=== PATIENT | male | born 1965 | race Caucasian/White ===

== ENCOUNTER 2016-11-03 20:20 | Emergency (ER) | payer SELFPAY ==
[2016-11-03] MEDS ORDERED: IBUPROFEN 800 MG TABLET PO ONE (20:37)
--- NOTE | 2016-11-03 20:40 | ER Document Report ---
ED Medical Screen (RME) - General Stated Complaint: ARM PAIN Notes: Patient complaint bilateral arm pain for the past 1 year. States he was seen approximately one year ago, given a shot of steroids and put on ibuprofen. 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 I have greeted and performed a rapid initial assessment of this patient. A comprehensive ED assessment and evaluation of the patient, analysis of test results and completion of the medical decision making process will be conducted by additional ED providers. TRAVEL OUTSIDE OF THE [place] IN LAST 30 DAYS: No - Related Data Allergies/Adverse Reactions: No Known Allergies Allergy (Verified 11/03/16 20:35) Past Medical History Renal/ Medical History: Reports: Hx Kidney Stones Past Surgical History: Reports: Hx Appendectomy - Immunizations Hx Diphtheria, Pertussis, Tetanus Vaccination: Yes Physical Exam - Vital signs Vitals: Temp Pulse Resp BP Pulse Ox 98.1 F 80 20 157/88 H 95 11/03/16 20:34 11/03/16 20:34 11/03/16 20:34 11/03/16 20:34 11/03/16 20:34 Course - Vital Signs Vital signs: Temp Pulse Resp BP Pulse Ox 98.1 F 80 20 157/88 H 95 11/03/16 20:34 11/03/16 20:34 11/03/16 20:34 11/03/16 20:34 11/03/16 20:34
[2016-11-03] MEDS ORDERED: PREDNISONE 20 MG TABLET PO ONE (22:23)
--- NOTE | 2016-11-03 22:33 | ER Document Report ---
ED General - General Chief Complaint: Arm Pain Stated Complaint: ARM PAIN Notes: Patient is 51-year-old male who presents for complaint of chronic recurring pain that goes from his elbows down into his forearms. 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 Recently he has been short staffed and have no do a lot of the work himself. The past whenever he has to do a lot of the work he starts getting these pains into his arms. In the past steroids and NSAIDs have helped. He's never seen a with peers but this. He says the pain originates from his lateral epicondyles if he pushes on his lateral epicondyles of his elbows it does reproduce his symptoms. TRAVEL OUTSIDE OF THE [place] IN LAST 30 DAYS: No - Related Data Allergies/Adverse Reactions: No Known Allergies Allergy (Verified 11/03/16 20:35) Past Medical History - Social History Smoking Status: Current Every Day Smoker Frequency of alcohol use: Occasional Drug Abuse: None Family History: Other - father with prostate cancer Renal/ Medical History: Reports: Hx Kidney Stones. Denies: Hx Peritoneal Dialysis Past Surgical History: Reports: Hx Appendectomy - Immunizations Hx Diphtheria, Pertussis, Tetanus Vaccination: Yes Review of Systems - Review of Systems Notes: My Normal Review Basic REVIEW OF SYSTEMS: CONSTITUTIONAL : Denies fever, chills, or sweats. Denies recent illness. MUSCULOSKELETAL: Pain in forearms and elbows. SKIN: Denies rash or skin lesions. HEMATOLOGIC : Denies easy bruising or bleeding. NEUROLOGICAL: Denies sensory or motor loss. ALL OTHER SYSTEMS REVIEWED AND NEGATIVE. Physical Exam - Vital signs Vitals: Temp Pulse Resp BP Pulse Ox 98.1 F 80 20 157/88 H 95 11/03/16 20:34 11/03/16 20:34 11/03/16 20:34 11/03/16 20:34 11/03/16 20:34 - Notes Notes: General Appearance: Well nourished, alert, cooperative, no acute distress, mild obvious discomfort. Vitals: reviewed, See vital signs table. Extremities: strength 5/5 in all extremities, good pulses in all extremities, pain to palpation over bilateral epicondyles., no edema. Skin: warm, dry, appropriate color, no rash Neuro: speech clear, oriented x 3, normal affect, responds appropriately to questions. Course - Vital Signs Vital signs: Temp Pulse Resp BP Pulse Ox 98.1 F 70 16 141/77 H 97 11/03/16 22:48 11/03/16 22:48 11/03/16 22:48 11/03/16 22:48 11/03/16 22:48 - Transfer of Care Notes: 11/04/16 06:57 Patient will be discharged home. I will place him on prednisone tapering dose. I encouraged him to take Naprosyn. I encourage him to rest and not use his arms for heavy lifting for at least several days. Encourage him to use ice packs to the lateral epicondyles. I encourage him to use compression sleeves over the area when he does have to work. I will give him referral to orthopedics. I encourage him to return to ER if has worsening pain or feels unwell. Symptoms seem very consistent with lateral epicondylitis. Dictation of this chart was performed using voice recognition software; therefore, there may be some unintended grammatical errors. Discharge - Discharge Clinical Impression: Lateral epicondylitis Qualifiers: Laterality: bilateral Qualified Code(s): M77.11 - Lateral epicondylitis, right elbow Arm pain Qualifiers: Laterality: bilateral Qualified Code(s): M79.601 - Pain in right arm Condition: Good Disposition: HOME, SELF-CARE Additional Instructions: Please rest your arms for 1 week if possible. please apply ice packs to your elbows for no longer than 30 minutes at a time. please follow up with the orthopedic clinic (Dr. Morris) for further treatment options. Prescriptions: Naproxen [Naprosyn 250 mg Tablet] 250 mg PO BID #20 tablet Prednisone 10 mg PO ASDIR #42 tablet Referrals: BUCK MORRIS DO [ACTIVE STAFF] - Follow up in 3-5 days
[2016-11-03 22:49] VITALS: BP 141/77
== END 2016-11-03 22:49 | disposition home or self-care (01) ==
LOC: ER 20:20
DX: M77.11 Lateral epicondylitis, right elbow (principal); F17.200 Nicotine dependence, unspecified, uncomplicated
CPT/HCPCS: 99283; J7512

== ENCOUNTER 2017-08-28 19:12 | Emergency (ER) | payer OTHER ==
[2017-08-28] MEDS ORDERED: CEPHALEXIN 500 MG CAPSULE PO ONE (19:28)
[2017-08-28] MEDS ORDERED: DIPH/PERTUSS(ACELL)/TETANUS VAC/PF 0.5 ML SYR (>=10YO) IM ONE (19:28)
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
[2017-08-28] MEDS ORDERED: LIDOCAINE 1%/EPINEPHRINE INJ 20 ML VIAL INJ ONE (19:50)
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
[2017-08-28] MEDS ORDERED: ACETAMINOPHEN 325 MG TABLET PO ONE (21:32)
[2017-08-28] MEDS ORDERED: IBUPROFEN 600 MG TABLET PO ONE (21:33)
== END 2017-08-28 22:10 | disposition home or self-care (01) ==
LOC: ER 19:12
PROC: 0HQMXZZ Repair Right Foot Skin, External Approach (ICD-10-PCS; principal; 2017-08-28)
DX: S91.311A Laceration without foreign body, right foot, initial encounter (principal); S92.421A Displaced fracture of distal phalanx of right great toe, initial encounter for closed fracture; Y03.0XXA Assault by being hit or run over by motor vehicle, initial encounter; F17.200 Nicotine dependence, unspecified, uncomplicated; Z23 Encounter for immunization
CPT/HCPCS: 99283; 73630; 90715; 12004; J3490

== ENCOUNTER 2017-09-06 13:22 | Inpatient (IN) | payer OTHER ==
[2017-09-06] MEDS ORDERED: OXYCODONE-ACETAMINOPHEN 5-325 MG TABLET PO ONE (14:29)
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
--- NOTE | 2017-09-06 15:00 | RADIOLOGY REPORT (SQ) ---
EXAM DESCRIPTION: FOOT RIGHT COMPLETE COMPLETED DATE/TIME: 09/06/2017 2:47 pm REASON FOR STUDY: foot infection COMPARISON: None. NUMBER OF VIEWS: Three views. TECHNIQUE: AP, lateral and oblique radiographic images acquired of the right foot. LIMITATIONS: None. FINDINGS: MINERALIZATION: Normal. BONES: There is a minor fracture of the terminal tuft of the 1st digit. There is no evidence of oste omyelitis. JOINTS: No effusions. SOFT TISSUES: There is irregular soft tissue swelling of the great toe. OTHER: No other significant finding. IMPRESSION: Fracture of the terminal tuft the 1st distal phalanx. Soft tissue swelling. No osteomy elitis. TECHNICAL DOCUMENTATION: JOB ID: [id number] [employer]- All Rights Reserved
[2017-09-06] MEDS ORDERED: NORMAL SALINE 1000 ML 1,000 ML IV ONE (15:39)
[2017-09-06] MEDS ORDERED: PIPERACILLIN/TAZOBACTAM 3.375 GM VIAL IV ONE ×3 (15:39→23:54)
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
[2017-09-06 15:48] LABS: ABSOLUTE BASOPHILS # (AUTO) 0.1 10^3/uL (0.0-0.2); ABSOLUTE EOSINOPHILS # (AUTO) 0.2 10^3/uL (0.0-0.6); ABSOLUTE LYMPHOCYTES (AUTO) 2.4 10^3/uL (0.5-4.7); ABSOLUTE NEUT (AUTO) 12.9 10^3/uL (1.7-8.2); BASOPHILS % (AUTO) 0.7 % (0-2); EOSINOPHILS % (AUTO) 1.2 % (0-6); HEMATOCRIT 44.4 % (37.9-51.0); HEMOGLOBIN 15.6 g/dL (13.5-17.0); HGB HCT DIFFERENCE 2.4; LYMPHOCYTES % (AUTO) 14.5 % (13-45); MEAN CORPUSCULAR HGB CONC 35.1 g/dL (32.0-36.0); MEAN CORPUSCULAR VOLUME 94 fl (80-97); RED BLOOD COUNT 4.73 10^6/uL (4.35-5.55); RED CELL DISTRIBUTION WIDTH 13.1 % (11.5-14.0); SEGMENTED NEUTROPHILS % (AUTO) 77.6 % (42-78); WHITE BLOOD COUNT 16.7 10^3/uL (4.0-10.5)
[2017-09-06 15:49] LABS: ALANINE AMINOTRANSFERASE 28 U/L (21-72); ALBUMIN 4.5 g/dL (3.5-5.0); ALKALINE PHOSPHATASE 100 U/L (38-126); ANION GAP 16 (5-19); ASPARTATE AMINO TRANSFERASE 23 U/L (17-59); BILIRUBIN,DIRECT 0.4 mg/dL (0.0-0.4); BILIRUBIN,TOTAL 0.5 mg/dL (0.2-1.3); BLOOD UREA NITROGEN 16 mg/dL (7-20); CALCIUM 10.3 mg/dL (8.4-10.2); CARBON DIOXIDE 23 mmol/L (22-30); CHLORIDE 105 mmol/L (98-107); CREATININE RESULT 0.92 mg/dL (0.52-1.25); GLUCOSE 93 mg/dL (75-110); POTASSIUM 4.8 mmol/L (3.6-5.0); SODIUM 144.3 mmol/L (137-145); TOTAL PROTEIN 7.9 g/dL (6.3-8.2)
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
[2017-09-06] MEDS ORDERED: DEXTROSE 40% GEL 15 GM TUBE PO PRN (17:26)
[2017-09-06] MEDS ORDERED: DEXTROSE 50%-WATER 25 GM/50 ML DISP.SYRIN IV PRN (17:26)
[2017-09-06] MEDS: HYDROMORPHONE HCL INJ/PF 2 MG/ML AMPULE IV PRN (22:13)
[2017-09-07] MEDS: PIPERACILLIN/TAZOBACTAM 3.375 GM VIAL IV SCH ×2 (00:05→06:38)
[2017-09-07] MEDS: NORMAL SALINE 1000 ML 1,000 ML IV PRN (00:05)
[2017-09-07] MEDS: HYDROMORPHONE HCL INJ/PF 2 MG/ML AMPULE IV PRN (02:11)
[2017-09-07] MEDS ORDERED: INFLUENZA ADLT QUAD (36MOS+) 2017-18 VAC 0.5 ML SYR IM PRN (04:56)
[2017-09-07 05:50] LABS: ABSOLUTE BASOPHILS # (AUTO) 0.1 10^3/uL (0.0-0.2); ABSOLUTE EOSINOPHILS # (AUTO) 0.4 10^3/uL (0.0-0.6); ABSOLUTE LYMPHOCYTES (AUTO) 3.3 10^3/uL (0.5-4.7); ABSOLUTE MONOCYTES (AUTO) 1.3 10^3/uL (0.1-1.4); ABSOLUTE NEUT (AUTO) 7.5 10^3/uL (1.7-8.2); EOSINOPHILS % (AUTO) 3.1 % (0-6); HEMATOCRIT 38.2 % (37.9-51.0); HGB HCT DIFFERENCE 1.7; LYMPHOCYTES % (AUTO) 26.3 % (13-45); MEAN CORPUSCULAR HEMOGLOBIN 32.3 pg (27.0-33.4); MEAN CORPUSCULAR HGB CONC 34.7 g/dL (32.0-36.0); MEAN CORPUSCULAR VOLUME 93 fl (80-97); MONOCYTES % (AUTO) 10.2 % (3-13); RED BLOOD COUNT 4.11 10^6/uL (4.35-5.55); SEGMENTED NEUTROPHILS % (AUTO) 59.4 % (42-78); WHITE BLOOD COUNT 12.7 10^3/uL (4.0-10.5)
[2017-09-07 06:07] LABS: HEMOGLOBIN 13.3 g/dL (13.5-17.0)
[2017-09-07] MEDS ORDERED: SUCCINYLCHOLINE CHLORIDE INJ 200 MG/10 ML VIAL ONE (07:54)
[2017-09-07] MEDS ORDERED: ONDANSETRON HCL INJ/PF 4 MG/2 ML SDV ONE (07:54)
[2017-09-07] MEDS ORDERED: DEXAMETHASONE SOD PHOSPHATE INJ 4 MG/1 ML VIAL ONE (07:54)
[2017-09-07] MEDS ORDERED: FENTANYL CITRATE INJ/PF 100 MCG/2 ML AMPUL ONE ×2 (08:34)
[2017-09-07] MEDS ORDERED: MIDAZOLAM 2 MG/2 ML INJ ONE (08:34)
[2017-09-07] MEDS ORDERED: KETAMINE HCL INJ 500 MG/10 ML VIAL ONE (08:34)
[2017-09-07] MEDS ORDERED: PROPOFOL INJ 200 MG/20 ML VIAL IV ONE (08:35)
[2017-09-07] MEDS ORDERED: DIPHENHYDRAMINE HCL 50 MG/ML VIAL IV PRN (09:31)
[2017-09-07] MEDS ORDERED: FENTANYL CITRATE INJ/PF 100 MCG/2 ML AMPUL IV PRN ×3 (09:31)
[2017-09-07] MEDS ORDERED: MORPHINE SULFATE 10 MG/ML INJ IV PRN (09:31)
[2017-09-07] MEDS ORDERED: PROMETHAZINE HCL INJ 25 MG/1 ML VIAL IV PRN (09:31)
[2017-09-07] MEDS ORDERED: MORPHINE SULFATE 10 MG/ML INJ INJ ONE (10:00)
[2017-09-07] MEDS ORDERED: MORPHINE SULFATE 10 MG/ML INJ ONE (10:02)
[2017-09-07] MEDS ORDERED: PROMETHAZINE HCL INJ 25 MG/1 ML VIAL ONE (10:05)
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
[2017-09-07] MEDS ORDERED: PIPERACILLIN SODIUM/TAZOBACTAM 3.375 GM in NORMAL SALINE 100 ML IV ONE (13:00)
[2017-09-07] MEDS: OXYCODONE-ACETAMINOPHEN 5-325 MG TABLET PO PRN ×3 (15:05→23:09)
[2017-09-07] MEDS: PIPERACILLIN SODIUM/TAZOBACTAM 3.375 GM in NORMAL SALINE 100 ML IV SCH ×2 (17:26→23:09)
--- NOTE | 2017-09-07 23:01 | EKG REPORT ---
SEVERITY:- NORMAL ECG - SINUS RHYTHM : Confirmed by: Loly Carpenter 07-Sep-2017 23:00:15
[2017-09-08] MEDS: NORMAL SALINE 1000 ML 1,000 ML IV PRN (05:13)
[2017-09-08] MEDS: PIPERACILLIN SODIUM/TAZOBACTAM 3.375 GM in NORMAL SALINE 100 ML IV SCH ×3 (05:19→17:49)
[2017-09-08] MEDS: HYDROMORPHONE HCL INJ/PF 2 MG/ML AMPULE IV PRN (05:20)
[2017-09-08] MEDS ORDERED: ONDANSETRON HCL INJ/PF 4 MG/2 ML SDV ONE (09:14)
[2017-09-08] MEDS ORDERED: EPHEDRINE SULFATE INJ 50 MG/1 ML AMPULE ONE (09:14)
[2017-09-08] MEDS ORDERED: FENTANYL CITRATE INJ/PF 100 MCG/2 ML AMPUL ONE (09:14)
[2017-09-08] MEDS ORDERED: MIDAZOLAM 2 MG/2 ML INJ ONE (09:14)
[2017-09-08] MEDS ORDERED: HYDROMORPHONE HCL INJ/PF 2 MG/ML AMPULE ONE (09:14)
[2017-09-08] MEDS ORDERED: PROPOFOL INJ 200 MG/20 ML VIAL IV ONE (09:15)
[2017-09-08] MEDS ORDERED: LIDOCAINE 1% INJ-PF (10 MG/ML) 30 ML SDV ONE (09:30)
[2017-09-08] MEDS ORDERED: DIPHENHYDRAMINE HCL 50 MG/ML VIAL IV PRN (09:55)
[2017-09-08] MEDS ORDERED: MEPERIDINE HCL/PF INJ 25 MG/1 ML DISP.SYRIN IV PRN (09:55)
[2017-09-08] MEDS ORDERED: PROMETHAZINE HCL INJ 25 MG/1 ML VIAL IV PRN (09:55)
[2017-09-08] MEDS ORDERED: FENTANYL CITRATE INJ/PF 100 MCG/2 ML AMPUL IV PRN ×3 (09:55)
[2017-09-08] MEDS: OXYCODONE-ACETAMINOPHEN 5-325 MG TABLET PO PRN ×2 (13:22→17:38)
[2017-09-08 18:20] VITALS: BP 175/99
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
== END 2017-09-08 18:20 | disposition home or self-care (01) | DRG 914 ==
LOC: ER 13:22 → EH 17:06 → 5 22:38
PROVIDERS: ATTEND Surgery
PROC: 0JCQ3ZZ Extirpation of Matter from Right Foot Subcutaneous Tissue and Fascia, Percutaneous Approach (ICD-10-PCS; 2017-09-07)
PROC: 0JDQ3ZZ Extraction of Right Foot Subcutaneous Tissue and Fascia, Percutaneous Approach (ICD-10-PCS; principal; 2017-09-07 09:00)
PROC: 0JDQ3ZZ Extraction of Right Foot Subcutaneous Tissue and Fascia, Percutaneous Approach (ICD-10-PCS; 2017-09-08)
PROC: 0JQQ3ZZ Repair Right Foot Subcutaneous Tissue and Fascia, Percutaneous Approach (ICD-10-PCS; 2017-09-08)
DX: S91.121A Laceration with foreign body of right great toe without damage to nail, initial encounter (principal); L08.9 Local infection of the skin and subcutaneous tissue, unspecified; I10 Essential (primary) hypertension; Z79.899 Other long term (current) drug therapy
CPT/HCPCS: 00400; 36415; 80053; 85025; 87070; 87205; 88300; 93005; 93010; 96365; 99284; J0330; J1100; J1170; J2250; J2270; J2405; J2543; J2550; J2704; J3010; J3490; J7030

== ENCOUNTER 2017-09-15 11:32 | Emergency (ER) | payer OTHER ==
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
--- NOTE | 2017-09-15 14:09 | ER Document Report ---
ED General - General Chief Complaint: Wound Infection Stated Complaint: FOOT PAIN Time Seen by Provider: 09/15/17 12:00 TRAVEL OUTSIDE OF THE [place] IN LAST 30 DAYS: No - HPI Patient complains to provider of: Right foot infection Notes: Patient coming in for wound evaluation. Patient was recently operated on by local surgeons due to a crush injury that was sewed up with a foreign body thinning of getting infected. Patient is concerned about infection today denies any changes to the wound other than possibility of some slight drainage that was seen by his . Patient denies any increased pain states that his foot has feeling better since last time he was seen by a surgeon which was approximately on . Denies fevers chills nausea vomiting diarrhea. - Related Data Allergies/Adverse Reactions: No Known Allergies Allergy (Verified 09/15/17 11:32) Past Medical History - Social History Smoking Status: Current Every Day Smoker Frequency of alcohol use: Occasional Drug Abuse: Marijuana Family History: Reviewed & Not Pertinent, Other - father with prostate cancer Patient has suicidal ideation: No Patient has homicidal ideation: No - Past Medical History Cardiac Medical History: Reports: Hx Hypertension Denies: Hx Hypercholesterolemia Renal/ Medical History: Reports: Hx Kidney Stones. Denies: Hx Peritoneal Dialysis Past Surgical History: Reports: Hx Appendectomy, Hx Orthopedic Surgery - Right toe/foot - Immunizations Hx Diphtheria, Pertussis, Tetanus Vaccination: Yes Review of Systems - Review of Systems Constitutional: No symptoms reported EENT: No symptoms reported Cardiovascular: No symptoms reported Respiratory: No symptoms reported Gastrointestinal: No symptoms reported Genitourinary: No symptoms reported Male Genitourinary: No symptoms reported Musculoskeletal: Other - Wound infection Skin: No symptoms reported Hematologic/Lymphatic: No symptoms reported Neurological/Psychological: No symptoms reported Physical Exam - Vital signs Vitals: Temp Pulse Resp BP Pulse Ox 98.7 F 87 18 141/90 H 100 09/15/17 11:38 09/15/17 11:38 09/15/17 11:38 09/15/17 11:38 09/15/17 11:38 Interpretation: Normal - General General appearance: Appears well, Alert - HEENT Head: Normocephalic, Atraumatic Eyes: Normal Pupils: PERRL - Respiratory Respiratory status: No respiratory distress Chest status: Nontender Breath sounds: Normal Chest palpation: Normal - Cardiovascular Rhythm: Regular Heart sounds: Normal auscultation Murmur: No - Abdominal Inspection: Normal Distension: No distension Bowel sounds: Normal Tenderness: Nontender Organomegaly: No organomegaly - Back Back: Normal, Nontender - Extremities General upper extremity: Normal inspection, Nontender, Normal color, Normal ROM , Normal temperature General lower extremity: Other - Tenderness to palpation of the greater toe hallux region however there is no apparent tenderness to palpation of the foot.. No: Normal inspection - Patient with surgical wound mostly to the right greater toe with some necrotic tissue necrotic skin flap. Sutures are in place and looks to be good granulation tissue no overt infection noted erythema of the dorsum of the foot. - Neurological Neuro grossly intact: Yes Cognition: Normal Orientation: AAOx4 Kathy Coma Scale Eye Opening: Spontaneous Kathy Coma Scale Verbal: Oriented Kathy Coma Scale Motor: Obeys Commands [place] Coma Scale Total: 15 Speech: Normal Motor strength normal: LUE, RUE, LLE, RLE Sensory: Normal - Psychological Associated symptoms: Normal affect, Normal mood - Skin Skin Temperature: Warm Skin Moisture: Dry Skin Color: Normal Course - Re-evaluation Re-evalutation: 09/15/17 15:55 Patient was evaluated by Dr. Ca surgeon front elevator operator who saw the patient on states there is no changes to the wound no need to change antibiotic course or wound therapy at this time. Patient is to follow-up on Saturday. Patient agrees with plan. - Vital Signs Vital signs: Temp Pulse Resp BP Pulse Ox 99.0 F 68 18 145/82 H 98 09/15/17 14:19 09/15/17 14:19 09/15/17 14:19 09/15/17 14:19 09/15/17 14:19 Discharge - Discharge Clinical Impression: foot wound Condition: Good Disposition: HOME, SELF-CARE Additional Instructions: Continue your wound care at home. Please follow-up with the surgical clinic on Saturday. Per surgeon's instructions at bedside at Dr. Ca continue your antibiotics as well elevate your foot move the foot as much as he can. Return to the ER for any concerns.
[2017-09-15 14:36] VITALS: BP 145/82
--- NOTE | 2017-09-15 21:53 | CONSULTATION REPORT E ---
Consultation Report NAME: ANDRE LIRIANO : 1965 AGE: 51Y DATE: 09/15/2017 TO: BILL KERN M.D. FROM: MARILEE FRAUSTO M.D. Requesting Physician REFERRING PHYSICIAN: The patient seen at the request of Dr. Avila. CHIEF COMPLAINT: Right foot wound. REPORT OF CONSULTATION: The patient is a 51-year-old white male, well-known to [facility], 3+ week status post crush injury right foot, specifically right great toe and forefoot. The patient initially underwent irrigation, debridement, and closure of the foot wound by the emergency department immediately after injury. Seven days later the foot pussed up and then the patient was taken back to the operating room by Dr. Edu Gonzalez where he underwent debridement, removal of vegetable matter, closure of wound loosely. The patient was seen in [facility] last week and found to have satisfactory progression of wound healing, but not complete stability. There were areas of epidermolysis around the plantar surface of the great toe. Stitches were left in. The patient now comes back to the emergency department because the patient's was concerned the foot may be infected. He denies fever, chills, or temperature elevation. Past medical and surgical history can be found in the history and physical document. PHYSICAL EXAMINATION: The patient is seen in the Emergency Department at [facility] with Dr. Avila. He is in no acute distress. Exam focused on the right foot. The foot is warm. There is no evidence of edema or streaking. There are palpable dorsalis pedis, posterior tibial pulses. The right great toe and metatarsal area with approximately 8 Ethilon stitches. These remain intact. There are areas of desquamation and epidermolysis on the plantar surface of the great toe. There is no foul smell, pus, or anything expressed with gentle pressure. IMPRESSION: Traumatic injury right great toe and forefoot status post washout closure with acceptable postoperative condition of the wound. RECOMMENDATIONS: 1. No indication for further intervention. 2. The patient to continue pressure offloading while walking using crutches and elevation while at bedrest. 3. The patient is to return to [facility] as previously scheduled for wound check in approximately 48-72 hours. Debridement may commence at that time on the necrotic skin. This was explained to the patient. He expresses his understanding and agrees to proceed. DICTATING PHYSICIAN: BILL KERN M.D. [id number] PHY#: [id number] ID: [id number] JOB#: [id number] ACCT: [id number] cc:BILL KERN M.D. >
== END 2017-09-15 14:15 | disposition home or self-care (01) ==
LOC: ER 11:32
DX: T81.4XXA Infection following a procedure, initial encounter (principal); M79.671 Pain in right foot; Y83.9 Surgical procedure, unspecified as the cause of abnormal reaction of the patient, or of later complication, without mention of misadventure at the time of the procedure; F17.200 Nicotine dependence, unspecified, uncomplicated
CPT/HCPCS: 99283

== ENCOUNTER 2017-11-03 15:41 | Emergency (ER) | payer OTHER ==
[2017-11-03] MEDS ORDERED: DEXAMETHASONE SOD PHOS INJ 10 MG/1 ML VIAL IM ONE (16:40)
[2017-11-03] MEDS ORDERED: MELOXICAM 15 MG TABLET PO ONE (16:40)
--- NOTE | 2017-11-03 16:40 | ER Document Report ---
ED Extremity Problem, Upper - General Chief Complaint: Arm Pain Stated Complaint: PAIN IN BOTH ARMS Time Seen by Provider: 11/03/17 16:32 Mode of Arrival: Ambulatory Information source: Patient Notes: Patient is a 52-year-old male who presents to the ER today for bilateral arm pain that is chronic but worse over the past 3 days. Patient states that he does [employer] for a living and lifts heavy things over and over. He thinks that he "overuses" his arms. Patient denies any injury. He denies any numbness or tingling. He states that the pain is worse around the elbows but does shoot to the wrists. TRAVEL OUTSIDE OF THE [place] IN LAST 30 DAYS: No - Related Data Allergies/Adverse Reactions: No Known Allergies Allergy (Verified 09/15/17 11:32) Past Medical History - General Information source: Patient - Social History Smoking Status: Unknown if Ever Smoked Family History: Reviewed & Not Pertinent, Other - father with prostate cancer - Past Medical History Cardiac Medical History: Reports: Hx Hypertension Denies: Hx Hypercholesterolemia Renal/ Medical History: Reports: Hx Kidney Stones. Denies: Hx Peritoneal Dialysis Past Surgical History: Reports: Hx Appendectomy, Hx Orthopedic Surgery - Right toe/foot - Immunizations Hx Diphtheria, Pertussis, Tetanus Vaccination: Yes Review of Systems - Review of Systems Constitutional: No symptoms reported EENT: No symptoms reported Cardiovascular: No symptoms reported Respiratory: No symptoms reported Gastrointestinal: No symptoms reported Genitourinary: No symptoms reported Male Genitourinary: No symptoms reported Musculoskeletal: See HPI Skin: No symptoms reported Hematologic/Lymphatic: No symptoms reported Neurological/Psychological: No symptoms reported Physical Exam - Vital signs Vitals: Temp Pulse Resp BP Pulse Ox 98.2 F 93 16 165/87 H 98 11/03/17 15:48 11/03/17 15:48 11/03/17 15:48 11/03/17 15:48 11/03/17 15:48 - Notes Notes: PHYSICAL EXAMINATION: GENERAL: Well-appearing and in no acute distress. HEAD: Atraumatic, normocephalic. EYES: Pupils equal round and reactive to light, extraocular movements intact, sclera anicteric, conjunctiva are normal. NECK: Normal range of motion, supple without lymphadenopathy LUNGS: CTAB and equal. No wheezes rales or rhonchi. HEART: Regular rate and rhythm without murmurs ABDOMEN: Soft, no tenderness. No guarding, no rebound BACK: no vertebral tenderness, normal ROM GI/: no CVA tenderness EXTREMITIES: Normal range of motion but with pain on flexion and extension to the lateral elbows bilaterally, tender to lateral proximal forearms at base of elbow, no pitting edema. No cyanosis. NEUROLOGICAL: Cranial nerves grossly intact. Normal sensory/motor exams. PSYCH: Normal mood, normal affect. SKIN: Warm, Dry, normal turgor, no rashes or lesions noted Course - Re-evaluation Re-evalutation: 11/03/17 18:01 X-rays negative for any acute pathology. Trigger point injections to bilateral lateral epicondylitis was successful. - Vital Signs Vital signs: Temp Pulse Resp BP Pulse Ox 98.2 F 93 16 165/87 H 98 11/03/17 15:48 11/03/17 15:48 11/03/17 15:48 11/03/17 15:48 11/03/17 15:48 Procedures - Additional Procedures trigger point injection Time performed: 17:45 Additional Procedures: Other - lateral epicondylitis trigger point injection bilaterally used 30mg kenalog 2cc combined with 1/2 cc sensorcaine 0.75% injected successfully without any complicatioins, pt tolerated well no blood loss pt had almost immediate pain relief indicating proper placement neurovascularly intact Discharge - Discharge Clinical Impression: Epicondylitis, lateral (tennis elbow) Qualifiers: Laterality: bilateral Qualified Code(s): M77.11 - Lateral epicondylitis, right elbow; M77.12 - Lateral epicondylitis, left elbow; M77.12 - Lateral epicondylitis, left elbow Condition: Stable Disposition: HOME, SELF-CARE Additional Instructions: Return immediately for any new or worsening symptoms. Follow up with primary care provider, call tomorrow to make followup appointment. Prescriptions: Prednisone [Deltasone 20 mg Tablet] 2 tab PO DAILY 5 Days #10 tablet Forms: Return to Work
[2017-11-03] MEDS ORDERED: TRIAMCINOLONE ACETONIDE INJ 40 MG/1 ML VIAL INJ ONE ×2 (16:43→16:44)
[2017-11-03] MEDS ORDERED: BUPIVACAINE HCL 0.75% INJ/PF (7.5 MG/1 ML) 10 ML SDV INJ ONE (16:43)
[2017-11-03] MEDS ORDERED: TRIAMCINOLONE ACETONIDE INJ 10 MG/1 ML 5 ML VIAL ONE (17:03)
[2017-11-03] MEDS ORDERED: TRIAMCINOLONE ACETONIDE INJ 40 MG/1 ML VIAL ONE (17:03)
[2017-11-03] MEDS ORDERED: MELOXICAM 15 MG TABLET ONE (17:21)
--- NOTE | 2017-11-03 17:34 | RADIOLOGY REPORT (SQ) ---
EXAM DESCRIPTION: ELBOW BILATERAL 2 VIEWS MIN COMPLETED DATE/TIME: 11/03/2017 5:19 pm REASON FOR STUDY: elbow pain bilaterally COMPARISON: None. NUMBER OF VIEWS: Four views. TECHNIQUE: AP, lateral, and both oblique radiographic images acquired of the right and left elbow. LIMITATIONS: None. FINDINGS: MINERALIZATION: Normal. BONES: No acute fracture or dislocation. No worrisome bone lesions. No significant osteophytes. JOINT: No effusions. SOFT TISSUES: No soft tissue swelling. No foreign body. OTHER: No other significant finding. IMPRESSION: NEGATIVE STUDY OF THE RIGHT AND LEFT ELBOWS. NO EXPLANATION FOR PAIN. TECHNICAL DOCUMENTATION: JOB ID: [id number] [employer]- All Rights Reserved
[2017-11-03 18:30] VITALS: BP 154/82
== END 2017-11-03 18:30 | disposition home or self-care (01) ==
LOC: ER 15:41
PROC: 3E0233Z Introduction of Anti-inflammatory into Muscle, Percutaneous Approach (ICD-10-PCS; principal; 2017-11-03)
PROC: 3E023BZ Introduction of Anesthetic Agent into Muscle, Percutaneous Approach (ICD-10-PCS; 2017-11-03)
DX: M77.11 Lateral epicondylitis, right elbow (principal); M77.12 Lateral epicondylitis, left elbow; M79.601 Pain in right arm; M79.602 Pain in left arm
CPT/HCPCS: 82962; 99283

== ENCOUNTER 2019-02-26 08:38 | Emergency (ER) | payer SELFPAY ==
[2019-02-26] MEDS ORDERED: ONDANSETRON HCL INJ/PF 4 MG/2 ML SDV IV ONE (09:26)
--- NOTE | 2019-02-26 09:28 | ER Document Report ---
ED Medical Screen (RME) - General Chief Complaint: Arm Pain Stated Complaint: DIZZINESS Time Seen by Provider: 02/26/19 09:26 TRAVEL OUTSIDE OF THE [place] 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 Patient works as a metal roofer. Patient states that he has been trying to drink water, but is not urinating as much as he normally would be. Denies RODRIGUEZ, fever, neck pain, URI, CP, SOB, Abd pain, or rash. I have treated and performed a rapid initial assessment of this patient. A comprehensive ED assessment and evaluation of the patient, analysis of test results and completion of medical decision making process will be conducted by additional ED providers. PHYSICAL EXAMINATION: GENERAL: Well-appearing, well-nourished and in no acute distress. A&Ox4. Answers questions appropriately. LUNGS: Breath sounds clear to auscultation bilaterally and equal. No wheezes rales or rhonchi. HEART: Regular rate and rhythm without murmurs, rubs, gallops. Extremities: No cyanosis, clubbing, or edema b/l. NEUROLOGICAL: Normal speech, normal gait. Cranial nerves grossly intact. PSYCH: Normal mood, normal affect. - Related Data Allergies/Adverse Reactions: No Known Allergies Allergy (Verified 02/26/19 08:43) Past Medical History - Past Medical History Cardiac Medical History: Reports: Hx Hypertension Denies: Hx Hypercholesterolemia Renal/ Medical History: Reports: Hx Kidney Stones. Denies: Hx Peritoneal Dialysis Past Surgical History: Reports: Hx Appendectomy, Hx Orthopedic Surgery - Right toe/foot - Immunizations Hx Diphtheria, Pertussis, Tetanus Vaccination: Yes History of Influenza Vaccine for 06/2017 - 11/2017 Season: No Physical Exam - Vital signs Vitals: Temp Pulse Resp BP Pulse Ox 97.9 F 93 18 184/99 H 100 02/26/19 08:47 02/26/19 08:47 02/26/19 08:47 02/26/19 08:47 02/26/19 08:47 Course - Vital Signs Vital signs: Temp Pulse Resp BP Pulse Ox 97.9 F 93 18 184/99 H 100 02/26/19 08:47 02/26/19 08:47 02/26/19 08:47 02/26/19 08:47 02/26/19 08:47
[2019-02-26] MEDS: NORMAL SALINE 1000 ML 1,000 ML IV PRN ×2 (09:39→11:23)
[2019-02-26 09:57] LABS: ABSOLUTE BASOPHILS # (AUTO) 0.1 10^3/uL (0.0-0.2); ABSOLUTE EOSINOPHILS # (AUTO) 0.1 10^3/uL (0.0-0.6); ABSOLUTE LYMPHOCYTES (AUTO) 3.2 10^3/uL (0.5-4.7); ABSOLUTE MONOCYTES (AUTO) 1.6 10^3/uL (0.1-1.4); ABSOLUTE NEUT (AUTO) 10.4 10^3/uL (1.7-8.2); BASOPHILS % (AUTO) 0.5 % (0-2); EOSINOPHILS % (AUTO) 0.5 % (0-6); HEMATOCRIT 46.8 % (37.9-51.0); LYMPHOCYTES % (AUTO) 20.7 % (13-45); MEAN CORPUSCULAR HEMOGLOBIN 31.7 pg (27.0-33.4); MEAN CORPUSCULAR HGB CONC 34.1 g/dL (32.0-36.0); MEAN CORPUSCULAR VOLUME 93 fl (80-97); MONOCYTES % (AUTO) 10.3 % (3-13); PLATELET COUNT 386 10^3/uL (150-450); RED BLOOD COUNT 5.03 10^6/uL (4.35-5.55); RED CELL DISTRIBUTION WIDTH 13.4 % (11.5-14.0); TOTAL CELLS COUNTED % (AUTO) 100 %; WHITE BLOOD COUNT 15.3 10^3/uL (4.0-10.5)
[2019-02-26 09:58] LABS: APPEARANCE,URINE SLIGHTLY-CLOUDY; BILIRUBIN,URINE NEGATIVE (NEGATIVE); COLOR,URINE YELLOW; GLUCOSE, URINE NEGATIVE (NEGATIVE); KETONES,URINE TRACE mg/dL (NEGATIVE); LEUKOCYTE ESTERASE,URINE TRACE (NEGATIVE); NITRITE,URINE NEGATIVE (NEGATIVE); PROTEIN,URINE NEGATIVE (NEGATIVE); URINE SPECIFIC GRAVITY 1.026
[2019-02-26 10:19] LABS: ALANINE AMINOTRANSFERASE 27 U/L (21-72); ALBUMIN 5.2 g/dL (3.5-5.0); ALKALINE PHOSPHATASE 106 U/L (38-126); ANION GAP 15 (5-19); ASPARTATE AMINO TRANSFERASE 27 U/L (17-59); BILIRUBIN,DIRECT 0.3 mg/dL (0.0-0.4); BILIRUBIN,TOTAL 0.7 mg/dL (0.2-1.3); BLOOD UREA NITROGEN 32 mg/dL (7-20); CALCIUM 10.8 mg/dL (8.4-10.2); CARBON DIOXIDE 25 mmol/L (22-30); CHLORIDE 100 mmol/L (98-107); GLUCOSE 95 mg/dL (75-110); TOTAL PROTEIN 8.7 g/dL (6.3-8.2)
--- NOTE | 2019-02-26 10:21 | ER Document Report ---
ED General - General Chief Complaint: Arm Pain Stated Complaint: DIZZINESS Time Seen by Provider: 02/26/19 09:26 Notes: Patient presents with fatigue nausea and dehydration since yesterday when he did [employer] all day in the heat and did not keep up with fluids. He is feeling better on my evaluation after he received nausea medicine and 1 L of IV fluids. Denies muscle pain or cramping other than his forearms which always hurt. Denies abdominal pain or chest pain. TRAVEL OUTSIDE OF THE [place] IN LAST 30 DAYS: No - Related Data Allergies/Adverse Reactions: No Known Allergies Allergy (Verified 02/26/19 08:43) Past Medical History - Social History Smoking Status: Current Every Day Smoker Family History: Reviewed & Not Pertinent, Other - father with prostate cancer Patient has suicidal ideation: No Patient has homicidal ideation: No - Past Medical History Cardiac Medical History: Reports: Hx Hypertension Denies: Hx Hypercholesterolemia Renal/ Medical History: Reports: Hx Kidney Stones. Denies: Hx Peritoneal Dialysis Past Surgical History: Reports: Hx Appendectomy, Hx Orthopedic Surgery - Right toe/foot - Immunizations Hx Diphtheria, Pertussis, Tetanus Vaccination: Yes Review of Systems - Review of Systems Notes: REVIEW OF SYSTEMS GEN: Fatigue ENT: Denies sore throat, nasal discharge, ear pain EYES: Denies blurry vision, eye pain, discharge CV: Denies chest pain, palpitations, edema RESP: Denies cough, shortness of breath, wheezing GI: Denies abdominal pain, nausea no vomiting MSK: Tonic forearm pain unchanged today SKIN: Denies rash, skin lesions LYMPH: Denies swollen glands/lymph nodes NEURO:. Denies headache, focal weakness or numbness, dizziness PSYCH: Denies depression, suicidal or homicidal ideation PHYSICAL EXAMINATION General: No acute distress, well-nourished Head: Atraumatic, normocephalic ENT: Mouth normal, oropharynx moist, no exudates or tonsillar enlargement Eyes: Conjunctiva normal, pupils equal, lids normal Neck: No JVD, supple, no guarding CVS: Normal rate, regular rhythm, no murmurs Resp: No resp distress, equal and normal breath sounds bilaterally GI: Nondistended, soft, no tenderness to palpation, no rebound or guarding Ext: No deformities, no edema, normal range of motion in upper and lower ext department all soft throughout upper and lower extremities with no tenderness. Back: No CVA or midline TTP Skin: No rash, warm Lymphatic: No lymphadeopathy noted Neuro: Awake, alert. Face symmetric. GCS 15. Speech memory and coordination, normal cranial nerves. Physical Exam - Vital signs Vitals: Temp Pulse Resp BP Pulse Ox 97.9 F 93 18 184/99 H 100 02/26/19 08:47 02/26/19 08:47 02/26/19 08:47 02/26/19 08:47 02/26/19 08:47 Course - Re-evaluation Re-evalutation: 02/26/19 10:20 Patient presents with nausea and generalized fatigue/malaise with dizziness after working in 100 degree heat yesterday. He is feeling better after fluids which suggest dehydration. He does not have muscle tenderness consistent with red myolysis. His abdominal exam is normal despite having nausea, but he has no abdominal pain. 02/26/19 11:16 Patient feels better with hydration. Labs show mild hypermagnesemia cytosis, but he has no signs of infection or muscular symptoms. Is likely muscle tenderness or pain and radicular myelitis. He stable for discharge home. His creatinine is 1.4 with no baseline. He was instructed to hydrate well stay out of the sun and follow-up with primary care. I have discussed with the patient there likely diagnosis, aftercare plan, follow-up plans and my usual and customary return precautions. They verbalized understanding of this. - Vital Signs Vital signs: Temp Pulse Resp BP Pulse Ox 97.9 F 93 18 184/99 H 100 02/26/19 08:47 02/26/19 08:47 02/26/19 08:47 02/26/19 08:47 02/26/19 08:47 - Laboratory Result Diagrams: 02/26/19 09:30 02/26/19 09:30 Laboratory results interpreted by me: 02/26/19 02/26/19 02/26/19 09:30 09:30 09:30 WBC 15.3 H Absolute Neutrophils 10.4 H Absolute Monocytes 1.6 H BUN 32 H Creatinine 1.40 H Est GFR (Non-Af Amer) 53 L Calcium 10.8 H Magnesium 2.4 H Total Protein 8.7 H Albumin 5.2 H Urine Ketones TRACE H Urine Urobilinogen 2.0 H Ur Leukocyte Esterase TRACE H - EKG Interpretation by Sd EKG shows normal: Sinus rhythm Rate: Normal Rhythm: NSR When compared to previous EKG there are: Changes noted, Previous EKG unavailable Additional EKG results interpreted by me: 02/26/19 11:16 No prolongation of intervals or ST deviations Discharge - Discharge Clinical Impression: Heat stroke Qualifiers: Encounter type: initial encounter Qualified Code(s): T67.0XXA - Heatstroke and sunstroke, initial encounter Condition: Good Disposition: HOME, SELF-CARE Instructions: Heat Exhaustion ([facility])
[2019-02-26 10:22] LABS: POTASSIUM 4.3 mmol/L (3.6-5.0)
[2019-02-26 11:34] VITALS: BP 169/80
--- NOTE | 2019-02-26 16:12 | EKG REPORT ---
SEVERITY:- NORMAL ECG - SINUS RHYTHM : Confirmed by: Zuleyma Aguirre MD 26-Feb-2019 16:10:52
== END 2019-02-26 11:34 | disposition home or self-care (01) ==
LOC: ER 08:38
DX: T67.0XXA Heatstroke and sunstroke, initial encounter (principal); R11.0 Nausea; R42 Dizziness and giddiness; X30.XXXA Exposure to excessive natural heat, initial encounter; Y93.H3 Activity, building and construction; Y92.009 Unspecified place in unspecified non-institutional (private) residence as the place of occurrence of the external cause; F17.200 Nicotine dependence, unspecified, uncomplicated; I10 Essential (primary) hypertension
CPT/HCPCS: 93005; 99284; 96361; 96374; 36415; 82553; 83735; 85025; 80053; 81001; 93010; J2405; J7030

== ENCOUNTER 2019-05-20 19:07 | Emergency (ER) | payer SELFPAY ==
[2019-05-20] MEDS ORDERED: NORMAL SALINE 1000 ML 1,000 ML IV ONE (20:15)
[2019-05-20] MEDS ORDERED: ONDANSETRON HCL INJ/PF 4 MG/2 ML SDV IV ONE (20:15)
--- NOTE | 2019-05-20 20:20 | ER Document Report ---
ED Medical Screen (RME) - General Chief Complaint: Dizziness Stated Complaint: DIZZINESS Time Seen by Provider: 05/20/19 20:08 TRAVEL OUTSIDE OF THE [place] IN LAST 30 DAYS: No - HPI Notes: 05/20/19 20:16 Patient is a 53-year-old male with no significant past medical history who presents complaining of dizziness, syncopal episode, nauseous, general weakness, episodes of shortness of breath that started this afternoon. Patient states that he was sitting down in his house when he started to feel short of breath and weak/dizzy. Patient states that he then tried walking over to his neighbors because he was alone and during the process had a syncopal episode outside. Patient is unaware of how long he was out for, but his neighbor brought him here to the emergency department for evaluation. Patient believes it was in the later afternoon when he walked over to his neighbor's. Denies any headache, fever, neck pain, changes in vision/speech/mentation/hearing, URI, sore throat, chest pain, palpitations, cough, abdominal pain, diarrhea, urinary retention, dysuria, hematuria, loss of control of bowel or bladder, numbness/tingling, saddle anesthesia, muscle paralysis, or rash. I have treated and performed a rapid initial assessment of this patient. A comprehensive ED assessment and evaluation of the patient, analysis of test results and completion of medical decision making process will be conducted by additional ED providers. PHYSICAL EXAMINATION: accompanied by female nurse GENERAL: no acute distress. A&Ox4. Answers questions appropriately. HEAD: Atraumatic, normocephalic. Non-tender. No paz sign EYES: Pupils equal round and reactive to light, extraocular movements intact, sclera anicteric, conjunctiva are normal. No raccoon eyes/entrapment ENT: EAC clear b/l. TM's intact b/l without erythema, fluid, or perforation. Nares patent and without discharge. oropharynx clear without exudates. No tonsilar hypertrophy or erythema. Moist mucous membranes. No sinus tenderness. No hemotympanum/CSF discharge. NECK: Normal range of motion, supple without lymphadenopathy. No rigidity. No midline tenderness. Chest: No flail chest. equal rise/fall. Non-tender LUNGS: Breath sounds clear to auscultation bilaterally and equal. No wheezes rales or rhonchi. HEART: Regular rate and rhythm without murmurs, rubs, gallops. ABDOMEN: Soft, nontender, nondistended abdomen. No guarding, no rebound. Normal bowel sounds present. No CVA tenderness bilaterally. Musculoskeletal: Ext b/l: FROM to passive/active. Strength 5+/5. No deficits noted. No bony tenderness of extremities. Back: FROM to passive/active. Strength 5+/5. No vertebral point tenderness, stepoffs, or deformities. No other bony tenderness or ecchymosis. Extremities: No cyanosis, clubbing, or edema b/l. Peripheral pulses 2+. Capillary refill less than 2 seconds. NEUROLOGICAL: NIH 0. GCS 15. Cranial nerves grossly intact. Normal speech. Normal sensory, motor exams. Reflexes 2+ b/l. GERA's negative. PSYCH: Normal mood, normal affect. SKIN: Warm, Dry, normal turgor, no rashes or lesions noted. - Related Data Allergies/Adverse Reactions: No Known Allergies Allergy (Verified 05/20/19 19:08) Past Medical History - Social History Chew tobacco use (# tins/day): No Frequency of alcohol use: Occasional Drug Abuse: None - Past Medical History Cardiac Medical History: Reports: Hx Hypertension Denies: Hx Hypercholesterolemia Renal/ Medical History: Reports: Hx Kidney Stones. Denies: Hx Peritoneal Dialysis Past Surgical History: Reports: Hx Appendectomy, Hx Orthopedic Surgery - Right toe/foot - Immunizations Hx Diphtheria, Pertussis, Tetanus Vaccination: Yes History of Influenza Vaccine for 06/2017 - 11/2017 Season: No Physical Exam - Vital signs Vitals: Temp Pulse Resp BP Pulse Ox 98.3 F 92 24 H 174/87 H 99 05/20/19 19:13 05/20/19 19:13 05/20/19 19:13 05/20/19 19:13 05/20/19 19:13 Course - Vital Signs Vital signs: Temp Pulse Resp BP Pulse Ox 98.3 F 92 24 H 174/87 H 99 05/20/19 19:13 05/20/19 19:13 05/20/19 19:13 05/20/19 19:13 05/20/19 19:13
[2019-05-20] MEDS ORDERED: ONDANSETRON HCL INJ/PF 4 MG/2 ML SDV ONE (20:21)
[2019-05-20 21:45] LABS: ABSOLUTE EOSINOPHILS # (AUTO) 0.1 10^3/uL (0.0-0.6); ABSOLUTE MONOCYTES (AUTO) 1.2 10^3/uL (0.1-1.4); ABSOLUTE NEUT (AUTO) 11.3 10^3/uL (1.7-8.2); BASOPHILS % (AUTO) 0.3 % (0-2); EOSINOPHILS % (AUTO) 0.4 % (0-6); HEMATOCRIT 49.2 % (37.9-51.0); HEMOGLOBIN 16.7 g/dL (13.5-17.0); LYMPHOCYTES % (AUTO) 19.1 % (13-45); MEAN CORPUSCULAR HEMOGLOBIN 32.4 pg (27.0-33.4); MEAN CORPUSCULAR HGB CONC 33.9 g/dL (32.0-36.0); MEAN CORPUSCULAR VOLUME 96 fl (80-97); MONOCYTES % (AUTO) 7.5 % (3-13); PLATELET COUNT 392 10^3/uL (150-450); RED BLOOD COUNT 5.16 10^6/uL (4.35-5.55); RED CELL DISTRIBUTION WIDTH 13.8 % (11.5-14.0); SEGMENTED NEUTROPHILS % (AUTO) 72.7 % (42-78); TOTAL CELLS COUNTED % (AUTO) 100 %; WHITE BLOOD COUNT 15.5 10^3/uL (4.0-10.5)
--- NOTE | 2019-05-20 21:45 | RADIOLOGY REPORT (SQ) ---
EXAM DESCRIPTION: CLINICAL HISTORY: 53 years Male, SOB/COUGH COMPARISON: None. FINDINGS: Cardiomediastinal silhouette without obvious enlargement. There is suggestion of a mildly ectatic aortic arch. Moderate to prominent hyperinflation. Suspicious for COPD. No suspicious acute lung or pleural abnormality. IMPRESSION: Obvious hyperinflation suspicious for COPD. No obvious acute findings.
[2019-05-20 21:48] LABS: APPEARANCE,URINE CLEAR; BILIRUBIN,URINE NEGATIVE (NEGATIVE); COLOR,URINE YELLOW; GLUCOSE, URINE NEGATIVE (NEGATIVE); KETONES,URINE 20 mg/dL (NEGATIVE); LEUKOCYTE ESTERASE,URINE NEGATIVE (NEGATIVE); NITRITE,URINE NEGATIVE (NEGATIVE); PROTEIN,URINE NEGATIVE (NEGATIVE); URINE SPECIFIC GRAVITY 1.013; UROBILINOGEN,URINE NEGATIVE mg/dL (<2.0)
[2019-05-20 21:50] LABS: ALBUMIN 5.1 g/dL (3.5-5.0); ALKALINE PHOSPHATASE 98 U/L (38-126); ANION GAP 16 (5-19); ASPARTATE AMINO TRANSFERASE 30 U/L (17-59); BILIRUBIN,DIRECT 0.4 mg/dL (0.0-0.4); BILIRUBIN,TOTAL 0.5 mg/dL (0.2-1.3); BLOOD UREA NITROGEN 15 mg/dL (7-20); CALCIUM 10.6 mg/dL (8.4-10.2); CARBON DIOXIDE 26 mmol/L (22-30); CHLORIDE 98 mmol/L (98-107); CREATINE KINASE 123 U/L (55-170); GLUCOSE 91 mg/dL (75-110); POTASSIUM 4.6 mmol/L (3.6-5.0); TOTAL PROTEIN 8.3 g/dL (6.3-8.2)
[2019-05-20] MEDS ORDERED: FAMOTIDINE INJ/PF 20 MG/2 ML SDV IV ONE (21:54)
[2019-05-20 22:02] LABS: URINE AMPHETAMINES SCREEN NEGATIVE; URINE BARBITURATES SCREEN NEGATIVE; URINE BENZODIAZEPINES SCREEN NEGATIVE; URINE COCAINE SCREEN NEGATIVE; URINE MARIJUANA (THC) SCREEN NEGATIVE; URINE METHADONE SCREEN NEGATIVE; URINE PHENCYCLIDINE SCREEN NEGATIVE
[2019-05-20 22:02] LABS: NT PRO BNP 88 pg/mL (5-900)
[2019-05-20 22:04] LABS: TROPONIN I < 0.012 ng/mL
--- NOTE | 2019-05-20 22:04 | ER Document Report ---
ED General - General Chief Complaint: Dizziness Stated Complaint: DIZZINESS Time Seen by Provider: 05/20/19 20:08 TRAVEL OUTSIDE OF THE [place] IN LAST 30 DAYS: No - HPI Notes: Patient is a 53-year-old gentleman who presents to the emergency department for evaluation after a syncopal episode. Patient states he was at home, sitting in his recliner. He started to feel dizzy and lightheaded. He states he felt a tingling sensation in his neck and chest. He states he had had similar symptoms to that in the past, while in detention. He states he has been on multiple blood pressure medications while there. Since being discharged from detention, he has not followed up with a primary care provider. He states he is controlling his blood pressure better with lifestyle changes. He states that he was feeling dizzy and poorly, thought he may be overheating. He got up and had a cold shower. He states he still did not feel better so decided to go to his neighbor's house. In the process of heading to his neighbor's house he had a syncopal episode. He states he is not sure how long he was down. He feels nauseated but denies any pain. - Related Data Allergies/Adverse Reactions: No Known Allergies Allergy (Verified 05/20/19 19:08) Past Medical History - General Information source: Patient - Social History Smoking Status: Current Every Day Smoker Chew tobacco use (# tins/day): No Frequency of alcohol use: Occasional Drug Abuse: Marijuana - States he uses marijuana twice a day, but last use was 2 weeks ago Family History: Reviewed & Not Pertinent, Other - father with prostate cancer Patient has suicidal ideation: No Patient has homicidal ideation: No - Past Medical History Cardiac Medical History: Reports: Hx Hypertension Denies: Hx Hypercholesterolemia Renal/ Medical History: Reports: Hx Kidney Stones. Denies: Hx Peritoneal Dialysis Past Surgical History: Reports: Hx Appendectomy, Hx Orthopedic Surgery - Right toe/foot - Immunizations Hx Diphtheria, Pertussis, Tetanus Vaccination: Yes Review of Systems - Review of Systems Constitutional: See HPI EENT: No symptoms reported Cardiovascular: See HPI Respiratory: See HPI Gastrointestinal: No symptoms reported Genitourinary: No symptoms reported Musculoskeletal: No symptoms reported Skin: No symptoms reported Neurological/Psychological: No symptoms reported Physical Exam - Vital signs Vitals: Temp Pulse Resp BP Pulse Ox 98.3 F 92 24 H 174/87 H 99 05/20/19 19:13 05/20/19 19:13 05/20/19 19:13 05/20/19 19:13 05/20/19 19:13 - Notes Notes: Vital signs reviewed, please refer to chart. Head is normocephalic, atraumatic. Pupils equal round, reactive to light. Neck is supple without meningismus. Heart is regular rate and rhythm. Lungs are clear to auscultation bilaterally. Abdomen is soft, nontender, normoactive bowel sounds throughout. Extremities without cyanosis, clubbing. Posterior calves are nontender. Peripheral pulses are equal. Skin is warm and dry. Patient is awake, alert, oriented x3. Cranial nerves II - XII are grossly intact without focal neurological deficits. Strength is plus 5 out of 5 bilateral upper and lower extremities. Sensation is intact. Reflexes symmetrical. Intact [id number], rapid alternating movements, [id number]. Course - Re-evaluation Re-evalutation: 05/20/19 21:57 Patient is a 53-year-old male who presents to the emergency department for evaluation of dizziness, syncopal episode. His blood pressure is elevated here. He does not follow with primary care. On arrival here the remainder of his vitals were unremarkable, and his neurological exam is normal. Laboratory i nvestigations and imaging is ordered. EKG if fails to reveal any significant abnormality. He does not meet LVH criteria. He has a normal axis. At this point, assuming normal laboratory investigations, we will send the patient home with close follow-up. The importance of blood pressure control was stressed to the patient, as was tobacco cessation. He voiced understanding to this. 05/20/19 22:17 Laboratory investigations all unremarkable. Patient's blood pressure is currently 152/91, elevated but not markedly so. I do not have a clear etiology for his syncopal episode. I strongly encouraged him to follow-up with primary care. He is to return to the ED with worsening or new concerning symptoms of any sort. - Vital Signs Vital signs: Temp Pulse Resp BP Pulse Ox 98.3 F 92 18 152/91 H 96 05/20/19 19:13 05/20/19 19:13 05/20/19 22:01 05/20/19 22:01 08/21/19 22:02 - Laboratory Result Diagrams: 05/20/19 20:41 05/20/19 20:41 Laboratory results interpreted by me: 05/20/19 05/20/19 05/20/19 20:25 20:41 20:41 WBC 15.5 H Absolute Neuts (auto) 11.3 H Calcium 10.6 H Total Protein 8.3 H Albumin 5.1 H Urine Ketones 20 H - Diagnostic Test Radiology reviewed: Reports reviewed Radiology results interpreted by me: 05/20/19 22:04 Chest X-Ray 05/20/19 00:00 IMPRESSION: Obvious hyperinflation suspicious for COPD. No obvious acute findings. - EKG Interpretation by Me Additional EKG results interpreted by me: 05/20/19 22:04 Sinus mechanism with a rate of 75 bpm. Normal axis and intervals, no acute ST changes concerning for ischemia or infarction. Discharge - Discharge Clinical Impression: Syncope and collapse, Nausea Hypertension Qualifiers: Hypertension type: unspecified Qualified Code(s): I10 - Essential (primary) hypertension Condition: Stable Disposition: HOME, SELF-CARE Instructions: Antinausea Medication ([facility]), Dizziness ([facility]), Syncopal Episode ([facility]) Additional Instructions: Rest and stay well-hydrated. [place] foods only to minimize your nausea. Try to quit smoking. You should follow-up with primary care, make sure you are addressing risk factors, and keep your blood pressure to see if you require treatment. If you develop worsening or new concerning symptoms of any sort, return immediately to the emergency department for evaluation. Forms: Smoking Cessation Education, Elevated Blood Pressure
[2019-05-20] MEDS ORDERED: ONDANSETRON ODT 4 MG TAB (6 TAB/ER DISP) PO PRN (22:17)
[2019-05-20 22:41] VITALS: BP 154/92
--- NOTE | 2019-05-21 09:01 | EKG REPORT ---
SEVERITY:- NORMAL ECG - SINUS RHYTHM : Confirmed by: Zuleyma Aguirre MD 21-May-2019 09:00:36
== END 2019-05-20 22:40 | disposition home or self-care (01) ==
LOC: ER 19:07
DX: R55 Syncope and collapse (principal); R11.0 Nausea; I10 Essential (primary) hypertension; R42 Dizziness and giddiness; R20.0 Anesthesia of skin; F17.200 Nicotine dependence, unspecified, uncomplicated
CPT/HCPCS: 36415; 82962; 82550; 84443; 85025; 80053; 81001; 84484; 80307; 83880; 71046; J2405; J7030; S0028; 93005; 93010

== ENCOUNTER 2020-08-13 19:29 | Emergency (ER) | payer SELFPAY ==
[2020-08-13 19:52] VITALS: BP 169/96
[2020-08-13] MEDS ORDERED: ACETAMINOPHEN 325 MG TABLET PO ONE (20:08)
[2020-08-13] MEDS ORDERED: DOXYCYCLINE HYCLATE 100 MG TABLET PO ONE (20:08)
--- NOTE | 2020-08-13 20:14 | ER Document Report ---
ED Skin Rash/Insect Bite/Abscs - General Chief Complaint: Skin Problem Stated Complaint: FEVERS,CHILLS,COUGH Time Seen by Provider: 08/13/20 19:58 Mode of Arrival: Ambulatory Information source: Patient Notes: 54-year-old male presented to ED for complaint of rash under his left arm for the last 4 days. He states about 6 or 7 days ago he had right flank pain fever chills nausea vomiting but that all went away and then 4 days ago he started with this rash that is got more more painful. It is all under the right arm but not in one dermatome. He states he also has elevated blood pressure and a headache. He states he is a little bit nauseated when his blood pressure goes up. He states that one time he was on clonidine but has not been back to the doctor in a long time. His blood pressure is 169/94. I have instructed him that he does need to follow-up with a primary care doctor. I did have Dr. Roland come and look at the rash under his arm. She started look like folliculitis. We will start him on doxycycline with some Tylenol and Zofran right now for the nausea and headache. He states he also is very thirsty and is always very thirsty so we will get an Accu-Chek at this time. His Accu-Chek is 89 at this time Constitutional: Negative for fever. HENT: Negative for sore throat. Eyes: Negative for visual changes. Cardiovascular: Negative for chest pain. Respiratory: Negative for shortness of breath. Gastrointestinal: Negative for abdominal pain, vomiting or diarrhea. Patient states he did have right flank pain 6 or 7 days ago with nausea and vomiting now he has some nausea when his blood pressure is elevated. Genitourinary: Negative for dysuria. Musculoskeletal: Negative for back pain. Skin: Infected rash left axilla. It does look like they are infected hair follicles. There is no abscesses noted. Neurological: Negative for headaches, weakness or numbness. 10 point ROS negative except as marked above and in HPI. PHYSICAL EXAMINATION: GENERAL: Well-appearing, well-nourished and in no acute distress. HEAD: Atraumatic, normocephalic. EYES: Pupils equal round extraocular movements intact, conjunctiva are normal. ENT: Nares patent NECK: Normal range of motion LUNGS: No respiratory distress Musculoskeletal: Normal range of motion NEUROLOGICAL: Normal speech, normal gait. PSYCH: Normal mood, normal affect. SKIN: Multiple pustular in the left axilla area. They are in multiple dermatomes. Patient also has headache with blood pressure of 169/94. TRAVEL OUTSIDE OF THE [place] IN LAST 30 DAYS: No - HPI Patient complains to provider of: Other - Pustules to the left axilla Onset: Other - See HPI Onset/Duration: Intermittent - See HPI Quality of pain: Achy, Sharp Severity: Moderate Pain Level: 3 Skin Character: Tenderness, Other - Multiple pustules left axilla Quality of rash: Painful Identify cause: Yes Exacerbated by: Movement - Movement of the arm and palpation Relieved by: Denies Similar symptoms previously: No Recently seen / treated by doctor: No - Related Data Allergies/Adverse Reactions: No Known Allergies Allergy (Verified 05/20/19 19:08) Past Medical History - General Information source: Patient - Social History Smoking Status: Current Every Day Smoker Cigarette use (# per day): Yes - Pack a day Smoking Education Provided: Yes Frequency of alcohol use: Rare Drug Abuse: Marijuana Family History: Reviewed & Not Pertinent, Other - father with prostate cancer Patient has homicidal ideation: No - Past Medical History Cardiac Medical History: Reports: Hx Hypertension Pulmonary Medical History: Reports: None EENT Medical History: Reports: None Neurological Medical History: Reports: None Endocrine Medical History: Reports: None Renal/ Medical History: Reports: Hx Kidney Stones Malignancy Medical History: Reports None GI Medical History: Reports: None Musculoskeletal Medical History: Reports None Skin Medical History: Reports None Psychiatric Medical History: Reports: None Traumatic Medical History: Reports: None Past Surgical History: Reports: Hx Appendectomy, Hx Orthopedic Surgery - Right toe/foot - Immunizations Hx Diphtheria, Pertussis, Tetanus Vaccination: Yes Physical Exam - Vital signs Vitals: Temp Pulse Resp BP Pulse Ox 100.3 F 97 18 169/96 H 99 08/13/20 19:50 08/13/20 19:50 08/13/20 19:50 08/13/20 19:50 08/13/20 19:50 Course - Re-evaluation Re-evalutation: 08/13/20 21:26 Cussed urine results with patient and written report urine results given to patient. Patient was instructed please to follow-up with the urologist due to a UTI and a 54-year-old man. Patient verbalized understanding agreement with treatment plan patient was discharged home with prescription for doxycycline. Patient was instructed to please be sure to give us a good phone number in case we need to change the antibiotic. - Vital Signs Vital signs: Temp Pulse Resp BP Pulse Ox 100.3 F 97 18 169/96 H 99 08/13/20 19:50 08/13/20 19:50 08/13/20 19:50 08/13/20 19:50 08/13/20 19:50 - Laboratory Laboratory results interpreted by me: 08/13/20 19:50 Urine Protein 100 H Ur Leukocyte Esterase MODERATE H Discharge - Discharge Clinical Impression: Folliculitis of left axilla UTI (urinary tract infection) Qualifiers: Urinary tract infection type: site unspecified Hematuria presence: without hematuria Qualified Code(s): N39.0 - Urinary tract infection, site not specified Condition: Stable Disposition: HOME, SELF-CARE Additional Instructions: Folliculitis You have a skin infection called folliculitis. This occurs when bacteria infect the hair follicles of the skin. Typically, redness and small pustules are found where hair shafts enter the skin. Allergy, surface irritation, shaving, and exposure to hot tubs predispose to folliculitis. The usual treatment is antibiotic ointment, sometimes combined with cortisone-type medication. Warm compresses are often used. If the infection has moved deeper into the skin, oral antibiotics may be necessary. To avoid future episodes of folliculitis, you must identify (if possible) the factors which allowed this infection to start. If you develop increasing pain, swelling, fever, or red streaks, call the doctor or return for re-evaluation. URINARY TRACT INFECTION: Your evaluation indicates that you have a urinary tract infection. This is due to germs growing in the bladder. This is a common problem. This infection usually responds quickly to antibiotics. Your antibiotic should be taken exactly as prescribed. Drink plenty of fluids -- three to four quarts a day. Occasionally, a bladder anesthetic will be prescribed to help stop the fee ling of urgency until the antibiotic has a chance to clear the infection. This may cause your urine to be dark orange. Certain urine infections require a culture. If the doctor obtained a cultu re, the results will be back in two days. You should call to see if a change in treatment is needed. A repeat urinalysis after you finish treatment is often recommended. The physician will let you know if further testing is required. Call the doctor if you develop fever, chills, flank pain, inability to urinate, or blood in the urine. Doxycycline Doxycycline (Vibramycin, Doryx) is an antibiotic of the tetracycline family. This type of drug is useful for infections of the respiratory tract and genital tract, and is sometimes used for intestinal infections. Unlike most tetracyclines, doxycycline can be taken with food. It is longer acting, and (usually) less prone to side effects than regular tetracycline. Tetracycline antibiotics can stain immature teeth and SHOULD NOT BE TAKEN BY CHILDREN, NURSING MOTHERS, OR WOMEN. Tetracyclines can make you more prone to sunburn. Abdominal cramping, nausea, and diarrhea are occasional side effects. Women may experience vaginal yeast infections. Call the doctor at once if you develop hives, itching, shortness of breath, or lightheadedness. Soap Cleansing Gently wash the wound daily using a mild soap (like Ivory, Phisoderm, Neutrogena). Use warm water, rubbing gently until all debris, ooze, and crusting have been washed from the wound. Allow to dry briefly (about 10 minutes) after cleaning. Repeat this cleansing at least three times a day for the first two days and then once or twice a day. Acetaminophen Acetaminophen may be taken for pain relief or fever control. It's much safer than aspirin, offering a wider range of "safe" dosages. It is safe during . Some brand names are Tylenol, Panadol, Datril, Anacin 3, Tempra, and Liquiprin. Acetaminophen can be repeated every four hours. The following are maximum recommended dosages: WEIGHT Dose Drops Elixir Chewable(80mg) (LBS.) drprs=droppers tsp=teaspoon 6 40 mg .4 ml (1/2) 6-11 80 mg .8 ml (full) 1/2 tsp 1 tab 12-16 120 mg 1 1/2 drprs 3/4 tsp 1 1/2 tabs 17-23 160 mg 2 drprs 1 tsp 2 tabs 24-30 240 mg 3 drprs 1 1/2 tsp 3 tabs 30-35 320 mg 2 tsp 4 tabs 36-41 360 mg 2 1/4 tsp 4 1/2 tabs 42-47 400 mg 2 1/2 tsp 5 tabs 48-53 480 mg 3 tsp 6 tabs 54-59 520 mg 3 1/4 tsp 6 1/2 tabs 60-64 560 mg 3 1/2 tsp 7 tabs 65-70 600 mg 3 3/4 tsp 7 1/2 tabs 71-76 640 mg 4 tsp 8 tabs 77-82 720 mg 4 1/2 tsp 9 tabs 83-88 800 mg 5 tsp 10 tabs >89 pounds or adults 650 mg to 900 mg Acetaminophen can be repeated every four hours. Maximum daily dose not to exceed 4000 mg. These maximum recommended dosages are slightly higher than the dosages written on the product container, but these dosages are very safe and well below the toxic dosage for acetaminophen. FOLLOW-UP CARE: If you have been referred to a physician for follow-up care, call the physicians office for an appointment as you were instructed or within the next two days. If you experience worsening or a significant change in your symptoms, notify the physician immediately or return to the Emergency Department at any time for re-evaluation. Prescriptions: Doxycycline Monohydrate 100 mg PO BID #14 capsule Forms: Elevated Blood Pressure, Smoking Cessation Education Referrals: ROBBIE ROSA MD [NO LOCAL MD] - Follow up in 1 week
[2020-08-13] MEDS ORDERED: ONDANSETRON 4 MG TAB.RAPDIS PO ONE (20:15)
--- NOTE | 2020-08-13 20:29 | ER Document Report ---
Doctor's Note Notes: 08/13/20 20:28 Patient seen in conjunction with the nurse practitioner, please see her note to correlate with mine. In short the patient had some right flank pain and vomiting several days ago, but this resolved. He now has a rash in his left axilla. He has had low-grade fevers and complains of a headache. On exam he h as a temperature of 100.3. He has multiple pustules in his axilla, spreading over multiple dermatomes. He has minimal tenderness surrounding to light touch, but significant induration without fluctuance. No other lesions are noted. His findings are most consistent with folliculitis. We will treat with doxycycline. Otherwise, I have not reviewed a urinalysis, but this was ordered as well given his recent flank pain and darkened urine. Please see the remainder of the patient's course on nurse practitioner's note.
[2020-08-13 20:32] LABS: APPEARANCE,URINE SLIGHTLY-CLOUDY; BILIRUBIN,URINE NEGATIVE (NEGATIVE); COLOR,URINE YELLOW; GLUCOSE, URINE NEGATIVE (NEGATIVE); KETONES,URINE NEGATIVE (NEGATIVE); LEUKOCYTE ESTERASE,URINE MODERATE (NEGATIVE); NITRITE,URINE NEGATIVE (NEGATIVE); PROTEIN,URINE 100 mg/dL (NEGATIVE); URINE SPECIFIC GRAVITY 1.027; UROBILINOGEN,URINE NEGATIVE mg/dL (<2.0)
== END 2020-08-13 21:26 | disposition home or self-care (01) ==
LOC: ER 19:29
DX: L73.9 Follicular disorder, unspecified (principal); N39.0 Urinary tract infection, site not specified; R50.9 Fever, unspecified; R05 Cough; R21 Rash and other nonspecific skin eruption; R10.9 Unspecified abdominal pain; R51.9 Headache, unspecified; R11.0 Nausea; R63.1 Polydipsia; I10 Essential (primary) hypertension; F17.210 Nicotine dependence, cigarettes, uncomplicated
CPT/HCPCS: 99283; 87086; 82962; 81001; S0119

== ENCOUNTER 2020-08-17 05:37 | Emergency (ER) | payer SELFPAY ==
[2020-08-17] MEDS ORDERED: ONDANSETRON 4 MG TAB.RAPDIS PO ONE (06:19)
[2020-08-17] MEDS ORDERED: ASPIRIN 81 MG TABLET, CHEWABLE PO ONE (06:19)
[2020-08-17] MEDS ORDERED: OXYCODONE HCL IR 5 MG TABLET PO ONE (06:19)
--- NOTE | 2020-08-17 06:23 | ER Document Report ---
ED Medical Screen (RME) - General Chief Complaint: Abscess Stated Complaint: ARM ABSCESS Time Seen by Provider: 08/17/20 06:19 Notes: 54-year-old male with more than 1 complaint. He states the reason he came in is because he woke up this morning and "felt a strange feeling in a pain in my chest". He states he broke out in a sweat and vomited. He states he thinks it is because of an infection in his left armpit, he states he was seen a few days ago and placed on doxycycline for this, he states the area still feels like "stinging bees". He reports history of hypertension, denies medical history otherwise. Denies current chest pain but states he feels very nauseated. TRAVEL OUTSIDE OF THE [place] IN LAST 30 DAYS: No - Related Data Allergies/Adverse Reactions: No Known Allergies Allergy (Verified 05/20/19 19:08) Past Medical History - Past Medical History Cardiac Medical History: Reports: Hx Hypertension Denies: Hx Hypercholesterolemia Renal/ Medical History: Reports: Hx Kidney Stones. Denies: Hx Peritoneal Dialysis Past Surgical History: Reports: Hx Appendectomy, Hx Orthopedic Surgery - Right toe/foot - Immunizations Hx Diphtheria, Pertussis, Tetanus Vaccination: Yes Physical Exam - Vital signs Vitals: Temp Pulse Resp BP Pulse Ox 99.6 F 100 18 168/93 H 98 08/17/20 05:49 08/17/20 05:49 08/17/20 05:49 08/17/20 05:49 08/17/20 05:49 - Cardiovascular Rhythm: Regular Heart sounds: Normal auscultation, S1 appreciated, S2 appreciated - Skin Skin irregularity: other - Scattered circular erythematous areas in the left axilla with scabs. No overt indurated or fluctuant areas noted Course - Re-evaluation Re-evalutation: Patient does have areas in the left axilla consistent with skin infection although there is no overt indurated or fluctuant area. Patient symptoms are also concerning for potential cardiac source. Medicating patient, work-up pending. I have greeted and performed a rapid initial assessment of this patient. A c omprehensive ED assessment and evaluation of the patient, analysis of test results and completion of the medical decision making process will be conducted by additional ED providers. - Vital Signs Vital signs: Temp Pulse Resp BP Pulse Ox 99.6 F 100 18 168/93 H 98 08/17/20 05:49 08/17/20 05:49 08/17/20 05:49 08/17/20 05:49 08/17/20 05:49
[2020-08-17 07:17] LABS: ABSOLUTE BASOPHILS # (AUTO) 0.1 10^3/uL (0.0-0.2); ABSOLUTE EOSINOPHILS # (AUTO) 0.2 10^3/uL (0.0-0.6); ABSOLUTE LYMPHOCYTES (AUTO) 5.5 10^3/uL (0.5-4.7); ABSOLUTE NEUT (AUTO) 7.2 10^3/uL (1.7-8.2); BASOPHILS % (AUTO) 0.8 % (0-2); EOSINOPHILS % (AUTO) 1.4 % (0-6); HEMATOCRIT 45.2 % (37.9-51.0); HEMOGLOBIN 15.7 g/dL (13.5-17.0); MEAN CORPUSCULAR HEMOGLOBIN 31.6 pg (27.0-33.4); MEAN CORPUSCULAR HGB CONC 34.6 g/dL (32.0-36.0); MEAN CORPUSCULAR VOLUME 91 fl (80-97); MONOCYTES % (AUTO) 7.3 % (3-13); PLATELET COUNT 342 10^3/uL (150-450); RED BLOOD COUNT 4.95 10^6/uL (4.35-5.55); RED CELL DISTRIBUTION WIDTH 13.7 % (11.5-14.0); SEGMENTED NEUTROPHILS % (AUTO) 51.5 % (42-78); TOTAL CELLS COUNTED % (AUTO) 100 %
--- NOTE | 2020-08-17 07:25 | RADIOLOGY REPORT (SQ) ---
EXAM: XR Chest, 1 View EXAM DATE/TIME: 08/17/2020 7:05 AM CLINICAL HISTORY: The patient is 54 years old and is Male; chest pain TECHNIQUE: Frontal view of the chest. COMPARISON: Chest radiograph from 05/28/2019 FINDINGS: LUNGS: Unremarkable. No consolidation. PLEURAL SPACE: Unremarkable. No pneumothorax. HEART: No significant enlargement of the cardiac silhouette. MEDIASTINUM: Unremarkable. BONES/JOINTS: No acute osseous findings. IMPRESSION: No acute findings visualized in the chest.
[2020-08-17 07:36] LABS: ALBUMIN 3.6 g/dL (3.5-5.0); ALKALINE PHOSPHATASE 113 U/L (38-126); ANION GAP 8 (5-19); ASPARTATE AMINO TRANSFERASE 83 U/L (17-59); BILIRUBIN,DIRECT 0.3 mg/dL (0.0-0.4); BILIRUBIN,TOTAL 0.6 mg/dL (0.2-1.3); BLOOD UREA NITROGEN 14 mg/dL (7-20); CALCIUM 9.1 mg/dL (8.4-10.2); CARBON DIOXIDE 23 mmol/L (22-30); CHLORIDE 104 mmol/L (98-107); GLUCOSE 99 mg/dL (75-110); POTASSIUM 4.6 mmol/L (3.6-5.0); TOTAL PROTEIN 6.7 g/dL (6.3-8.2)
[2020-08-17] MEDS ORDERED: CEFTRIAXONE 1 GM/D5W RTU 1 GM/50 ML RTUPB IV ONE (07:39)
--- NOTE | 2020-08-17 09:20 | ER Document Report ---
ED General - General Chief Complaint: Abscess Stated Complaint: ARM ABSCESS Time Seen by Provider: 08/17/20 06:19 Mode of Arrival: Ambulatory Information source: Patient TRAVEL OUTSIDE OF THE [place] IN LAST 30 DAYS: No - HPI Notes: Patient arrives complaining of epigastric pain vomiting chest pain. Also states she has had persistent intermittent fevers up to 103. States he was seen here approximately 4 days ago for "abscesses under my arm". He states he was prescribed doxycycline and he has been taking this. He also at that time was diagnosed with a urinary tract infection. He denies any pain with urination or frequency. He has had some intermittent flank pain on the right. He states that he has never had any type of abscesses or sores on his skin before. He denies any type of IV drug use and denies any history of ever using IV drugs. P hilariaient's pain has been primarily in the axilla. Is a burning sensation. Is been severe. Is constant. Is worse with movement and better with rest. It does radiate down the left side of his chest and abdomen. - Related Data Allergies/Adverse Reactions: No Known Allergies Allergy (Verified 05/20/19 19:08) Past Medical History - General Information source: Patient - Social History Smoking Status: Current Every Day Smoker Frequency of alcohol use: None Drug Abuse: None Family History: Reviewed & Not Pertinent, Other - father with prostate cancer - Past Medical History Cardiac Medical History: Reports: Hx Hypertension Denies: Hx Hypercholesterolemia Renal/ Medical History: Reports: Hx Kidney Stones. Denies: Hx Peritoneal Dialysis Past Surgical History: Reports: Hx Appendectomy, Hx Orthopedic Surgery - Right toe/foot - Immunizations Hx Diphtheria, Pertussis, Tetanus Vaccination: Yes Review of Systems - Review of Systems Constitutional: Chills, Fever Cardiovascular: Chest pain, Palpitations Respiratory: denies: Cough, Short of breath -: Yes All other systems reviewed and negative Physical Exam - Vital signs Vitals: Temp Pulse Resp BP Pulse Ox 99.6 F 100 18 168/93 H 98 08/17/20 05:49 08/17/20 05:49 08/17/20 05:49 08/17/20 05:49 08/17/20 05:49 Interpretation: Hypertensive - General General appearance: Appears well, Alert - HEENT Head: Normocephalic, Atraumatic Eyes: Normal Pupils: PERRL - Respiratory Respiratory status: No respiratory distress Chest status: Nontender Breath sounds: Normal Chest palpation: Normal - Cardiovascular Rhythm: Regular Heart sounds: Normal auscultation Murmur: No - Abdominal Inspection: Normal Distension: No distension Bowel sounds: Normal Tenderness: Nontender Organomegaly: No organomegaly - Back Back: Normal, Nontender - Extremities General upper extremity: Normal ROM, Other - see skin exam General lower extremity: Normal inspection, Nontender, Normal color, Normal ROM, Normal temperature, Normal weight bearing. No: Jovon's sign - Neurological Neuro grossly intact: Yes Cognition: Normal Orientation: AAOx4 Kathy Coma Scale Eye Opening: Spontaneous [place] Coma Scale Verbal: Oriented Kathy Coma Scale Motor: Obeys Commands Kathy Coma Scale Total: 15 Speech: Normal Motor strength normal: LUE, RUE, LLE, RLE Sensory: Normal - Psychological Associated symptoms: Normal affect, Normal mood - Skin Skin Temperature: Warm Skin Moisture: Dry Skin Color: Other - Left axilla has multiple areas of erythema tenderness and excoriation consistent with follicular abscesses. Many of these areas have adherent pustular scabs. Course - Re-evaluation Re-evalutation: 08/17/20 10:33 Patient presents with several issues. He has had persistent fevers and chills. He does have folliculitis in the left axilla. He does not have any evidence of deep abscesses. He is on doxycycline for this. However he is now having vomiting and some epigastric pain. No evidence of cardiac pathology. I believe this epigastric pain and vomiting is secondary to the doxycycline and I will try switching him to Septra. Patient also was having some flank pain and urinary symptoms when he was here 4 days ago which over currently somewhat better. I believe Septra will be adequate to cover this as well as his urine culture did not grow out any significant bacteria. At this time patient states that he feels significantly better. I will discharge the patient home with mupirocin and Septra. I will also give him some pain medication and nausea medication. Patient denies any type of IV drug use now or in the past. Patient also has a questionable internal hernia on CT scan however patient has no abdominal pain on palpation currently and states that his abdomen feels better. I did discuss the case with the surgeon, Dr. Mitchell. At this time the most prudent course seems to be to discharge the patient home and have him return if he has persistent symptoms. - Vital Signs Vital signs: Temp Pulse Resp BP Pulse Ox 99.6 F 100 18 168/93 H 98 08/17/20 05:49 08/17/20 05:49 08/17/20 05:49 08/17/20 05:49 08/17/20 05:49 - Laboratory Result Diagrams: 08/17/20 06:44 08/17/20 06:44 Laboratory results interpreted by me: 08/17/20 08/17/20 06:44 06:44 WBC 14.0 H Absolute Lymphs (auto) 5.5 H Sodium 134.5 L AST 83 H ALT 90 H - Diagnostic Test Radiology reviewed: Image reviewed, Reports reviewed Discharge - Discharge Clinical Impression: Folliculitis of left axilla Vomiting Qualifiers: Vomiting type: unspecified Vomiting Intractability: non-intractable Nausea presence: with nausea Qualified Code(s): R11.2 - Nausea with vomiting, unspecified Condition: Stable Disposition: HOME, SELF-CARE Instructions: Abscess ([facility]), Antinausea Medication ([facility]), Folliculitis ([facility]), Oral Narcotic Medication ([facility]), Intravenous (IV) Fluids ([facility]), Trimethoprim- Sulfa ([facility]), Vomiting ([facility]), MRSA Cellulitis ([facility]) Additional Instructions: Please be rechecked by your family doctor or a medical provider in two to three days Prescriptions: Ondansetron [Zofran Odt 4 mg Tablet] 1 - 2 tab PO Q4HP PRN #10 tab.rapdis PRN Reason: Mupirocin [Bactroban 2% Ointment 22 gm] 1 applic TP TID #1 tube Oxycodone HCl/Acetaminophen [Percocet 5-325 mg Tablet] 1 - 2 tab PO Q4H PRN #15 tablet PRN Reason: Sulfamethoxazole/Trimethoprim [Septra-Ds 800-160 mg Tablet] 1 tab PO BID 7 Days #14 tablet Forms: Return to Work Referrals: [facility] [Provider Group] - Follow up in 3-5 days
[2020-08-17] MEDS ORDERED: LORAZEPAM 0.5 MG TABLET PO ONE (09:21)
--- NOTE | 2020-08-17 09:37 | RADIOLOGY REPORT (SQ) ---
EXAM DESCRIPTION: CT CHEST WITH IMAGES COMPLETED DATE/TIME: 08/17/2020 8:53 am REASON FOR STUDY: left axillary pain/multiple abscesses COMPARISON: None. TECHNIQUE: CT scan of the chest performed using helical scanning technique with dynamic intravenous contrast injection. Images reviewed with lung, soft tissue and bone windows. Reconstructed coronal and sagittal MPR and MIP images reviewed. All images stored on PACS. All CT scanners at this facility use dose modulation, iterative reconstruction, and/or weight based d osing when appropriate to reduce radiation dose to as low as reasonably achievable (ALARA). [facility]: Dose Right [facility]: CareDose [facility]: Dose Right [facility]: Teradose 4D [facility]: Corelytics CONTRAST TYPE AND DOSE: contrast/concentration: Isovue 350.00 mmol/ml; Total Contrast Delivered: 79. 9 ml; Total Saline Delivered: 50.0 ml RENAL FUNCTION: BUN 14; creatinine 0.8 RADIATION DOSE: CT Rad equipment meets quality standard of care and radiation dose reduction techniq ues were employed. CTDIvol: 11.9 mGy. DLP: 523 mGy-cm. . LIMITATIONS: None. FINDINGS: LUNGS AND PLEURA: Trace bilateral pleural effusions. No focal consolidation. No pneumoth orax. HILAR AND MEDIASTINAL STRUCTURES: No identified masses or abnormal nodes. HEART AND VASCULAR STRUCTURES: No aneurysm or dissection. No central pulmonary emboli. No pericardi al effusion. Coronary artery calcifications are present. HARDWARE: None in the chest. UPPER ABDOMEN: No significant findings. Limited exam. THYROID AND OTHER SOFT TISSUES: No masses. No lymphadenopathy. No abnormal fluid collections. BONES: No significant finding. OTHER: No other significant finding. IMPRESSION: Normal CT appearance of the chest. Bilateral axillary lymph nodes appear reactive. No significant lymphadenopathy. TECHNICAL DOCUMENTATION: JOB ID: [id number] Quality ID # [id number]: Final reports with documentation of one or more dose reduction techniques (e.g., Au tomated exposure control, adjustment of the mA and/or kV according to patient size, use of iterative reconstruction technique) 2010 [employer]- All Rights Reserved Reading location - IP/workstation name: [email or web address]
--- NOTE | 2020-08-17 09:48 | RADIOLOGY REPORT (SQ) ---
EXAM DESCRIPTION: CT ABD/PELVIS NO ORAL OR IV IMAGES COMPLETED DATE/TIME: 08/17/2020 8:53 am REASON FOR STUDY: abd pain/vomiting COMPARISON: 01/09/2015 TECHNIQUE: CT scan of the abdomen and pelvis performed without intravenous or oral contrast. Images reviewed with lung, soft tissue, and bone windows. Reconstructed coronal and sagittal MPR images revi ewed. All images stored on PACS. All CT scanners at this facility use dose modulation, iterative reconstruction, and/or weight based d osing when appropriate to reduce radiation dose to as low as reasonably achievable (ALARA). [facility]: Dose Right [facility]: CareDose [facility]: Dose Right [facility]: Teradose 4D [facility]: Smart [employer] RADIATION DOSE: CT Rad equipment meets quality standard of care and radiation dose reduction techniq ues were employed. CTDIvol: 5.8 mGy. DLP: 343 mGy-cm.mGy. LIMITATIONS: None. FINDINGS: LOWER CHEST: See separate report of the CT of the chest. NON-CONTRASTED LIVER, SPLEEN, ADRENALS: Evaluation limited by lack of IV contrast. No identified sign ificant masses. PANCREAS: No masses. No peripancreatic inflammatory changes. GALLBLADDER: No identified stones by CT criteria. No inflammatory changes to suggest cholecystitis. RIGHT KIDNEY AND URETER: No suspicious masses. Assessment limited by lack of IV contrast. No signif icant calcifications. No hydronephrosis or hydroureter. LEFT KIDNEY AND URETER: No suspicious masses. Assessment limited by lack of IV contrast. No signifi cant calcifications. No hydronephrosis or hydroureter. AORTA AND RETROPERITONEUM: No aneurysm. No retroperitoneal masses or adenopathy. BOWEL AND PERITONEAL CAVITY: No masses or inflammatory changes. No free fluid. Incidental note is m fernando of an internal hernia with loops of nondistended, fluid-filled small bowel seen lateral to the le ft colon. While there is no evidence of karley obstruction, of the proximal small bowel does appear f ecalized, suggesting delayed transit. APPENDIX: Surgically absent. PELVIS, BLADDER, AND ABDOMINAL WALL:No abnormal masses. No free fluid. Bladder normal. BONES: No significant findings. OTHER: No other significant finding. IMPRESSION: Interval development of an internal hernia with multiple nondistended loops of fluid-alec led small bowel seen lateral to the left colon. The appearance of fecalized small bowel proximally s uggests delayed transit. COMMENT: Quality ID # [id number]: Final reports with documentation of one or more dose reduction techniques (e.g., Automated exposure control, adjustment of the mA and/or kV according to patient size, use of iterative reconstruction technique) TECHNICAL DOCUMENTATION: JOB ID: [id number] 2010 [employer]- All Rights Reserved Reading location - IP/workstation name: [email or web address]
--- NOTE | 2020-08-17 10:10 | EKG REPORT ---
SEVERITY:- NORMAL ECG - SINUS RHYTHM : Confirmed by: Zuleyma Aguirre MD 17-Aug-2020 10:10:08
[2020-08-17 10:58] VITALS: BP 140/87
== END 2020-08-17 10:56 | disposition home or self-care (01) ==
LOC: ER 05:37
DX: L73.9 Follicular disorder, unspecified (principal); R11.2 Nausea with vomiting, unspecified; L02.419 Cutaneous abscess of limb, unspecified; N39.0 Urinary tract infection, site not specified; R10.13 Epigastric pain; R07.9 Chest pain, unspecified; R00.2 Palpitations; R50.9 Fever, unspecified; F17.200 Nicotine dependence, unspecified, uncomplicated; I10 Essential (primary) hypertension; Z87.442 Personal history of urinary calculi; Z90.49 Acquired absence of other specified parts of digestive tract
CPT/HCPCS: 93005; 99285; 96365; 36415; 87040; 87070; 87205; 83690; 85025; 87075; 87077; 80053; 84484; 71045; 71260; 74176; 93010; S0119; J0696; 87186